=== PATIENT | male | born 1945 | race Two or more races ===

== ENCOUNTER 2019-05-17 09:30 | Outpatient (CLI) | payer OTHER | END 2019-05-17 09:32 | disposition home or self-care (01) | LOC: RX STUDY 09:30 | DX: R13.19 Other dysphagia (principal) ==

== ENCOUNTER 2023-08-06 09:40 | Outpatient (CLI) | payer OTHER | END 2023-08-06 09:47 | disposition home or self-care (01) | LOC: RX STUDY 09:40 | PROVIDERS: ATTEND Internal Medicine Pulmonary Disease | DX: J69.0 Pneumonitis due to inhalation of food and vomit (principal); K21.9 Gastro-esophageal reflux disease without esophagitis ==